=== PATIENT | female | born 1950 | race Caucasian/White ===

== ENCOUNTER 2023-08-07 19:47 | Emergency (ER) | payer MEDICARE ==
[~2023-08-07] VITALS: Ht 162.6 cm; Wt 81.7 kg
[~2023-08-07 19:47] MED LIST: CITA20 PO; ESTMET; GEMF600 PO; GLIM4 PO; HYDACE5 PO; LISI10 PO; LOVA20 PO; METF500 PO; VENL75ER; ZOLP10
[2023-08-07 19:51] VITALS: BP 176/83
== END 2023-08-07 23:08 | disposition home or self-care (01) ==
LOC: ER 19:47
DX: S82.62XA Displaced fracture of lateral malleolus of left fibula, initial encounter for closed fracture (principal); I10 Essential (primary) hypertension; E78.5 Hyperlipidemia, unspecified; E11.9 Type 2 diabetes mellitus without complications; Z79.84 Long term (current) use of oral hypoglycemic drugs; Z79.899 Other long term (current) drug therapy; W18.39XA Other fall on same level, initial encounter; Y93.89 Activity, other specified
CPT/HCPCS: 29515; 73562-LT; 73610; 96372-59; 99283-25; A9270; J1885

== ENCOUNTER → 2023-09-03 | Outpatient (CLI) | payer BC, MEDICARE ==
[2023-09-03 11:34] LABS: Creatinine, Urine Random 21.8 mg/dL (27.00-270.00); Protein, Urine Random 9.6 mg/dL (0.0-11.9); Protein/Creat Ratio, Ur Random 0.4
== END ==
LOC: LAB SHORT 10:06 → LAB 10:06
PROVIDERS: Family Medicine
DX: E11.65 Type 2 diabetes mellitus with hyperglycemia (principal)
CPT/HCPCS: 82570; 84156